=== PATIENT | male | born 2000 ===

== ENCOUNTER 2024-07-29 17:41 | Emergency (ER) | payer OTHER ==
[~2024-07-29] VITALS: Ht 172.7 cm; Wt 120.2 kg
[~2024-07-29 17:41] MED LIST: ALBU90I; IBUP100S; ONDA4ODT MM; RXONDA4ODT MM
[2024-07-29 18:20] VITALS: BP 159/101
[2024-07-29] MEDS ORDERED: HYDPAM25 PO (18:25)
[2024-07-29] MEDS ORDERED: HyDROXyzine HCl 25 MG Tab PO ONE (18:30)
== END 2024-07-29 18:33 | disposition home or self-care (01) ==
LOC: ER 17:41
DX: F41.0 Panic disorder [episodic paroxysmal anxiety] (principal); J45.909 Unspecified asthma, uncomplicated
CPT/HCPCS: 99283; A9270